=== PATIENT | female | born 1990 | race Caucasian/White ===

== ENCOUNTER 2019-02-04 15:56 | Emergency (ER) | payer OTHER ==
[~2019-02-04] VITALS: Ht 157.5 cm; Wt 122.9 kg
[2019-02-04 16:49] VITALS: BP 122/66; Ht 157.5 cm; Wt 122.9 kg
== END 2019-02-04 20:33 | disposition left against medical advice (07) ==
LOC: ED 15:56
DX: Z53.21 Procedure and treatment not carried out due to patient leaving prior to being seen by health care provider (principal)